=== PATIENT | male | born 1985 | race Caucasian/White ===

== ENCOUNTER 2019-10-04 22:23 | Emergency (ER) | payer OTHER ==
[~2019-10-04] VITALS: Ht 170.2 cm; Wt 67.1 kg
== END 2019-10-04 22:56 | disposition home or self-care (01) ==
LOC: ED 22:23
DX: K40.90 Unilateral inguinal hernia, without obstruction or gangrene, not specified as recurrent (principal); F17.200 Nicotine dependence, unspecified, uncomplicated
CPT/HCPCS: 99283

== ENCOUNTER 2023-12-10 18:08 | Inpatient (IN) | payer OTHER ==
[~2023-12-10] VITALS: Ht 170.2 cm; Wt 75.0 kg
[2023-12-10 20:19] LABS: HEMOGLOBIN 15.2 g/dL (12.0-18.0)
[2023-12-10 20:27] LABS: BILIRUBIN, URINE POSITIVE (negative); BLOOD/HGB, URINE NEGATIVE (Negative); KETONE, URINE SMALL (Negative); LEUK ESTERASE, URINE NEGATIVE (negative); NITRITE, URINE NEGATIVE (negative)
[2023-12-10 20:30] LABS: BASOPHILS 0.4 % (0-2); EOSINOPHILS 0.2 % (0-6); HEMATOCRIT 46.7 % (35.0-50.0); LYMPHOCYTES 6.1 % (24-44); MCHC 32.6 g/dl (30-36); MCV 85.9 fl (81-99); MONOCYTES 6.8 % (0-12); NEUTROPHILS 86.5 % (39-80); PLATELET COUNT 317 K/uL (140-440); RBC 5.44 M/ul (4.3-5.7); RDW 14.2 (10.5-15.0)
[2023-12-10 20:32] LABS: AMPHETAMINES, URINE POSITIVE (NEGATIVE); BARBITURATES, URINE NEGATIVE (NEGATIVE); BENZODIAZEPINE, URINE NEGATIVE (NEGATIVE); BUPRENORPHINE, URINE NEGATIVE (NEGATIVE); CANNABINOID, URINE POSITIVE (NEGATIVE); COCAINE, URINE NEGATIVE (NEGATIVE); ECSTASY, URINE POSITIVE (NEGATIVE); FENTANYL, URINE NEGATIVE (NEGATIVE); METHADONE, URINE NEGATIVE (NEGATIVE); OPIATES, URINE NEGATIVE (NEGATIVE); OXYCODONE, URINE NEGATIVE (NEGATIVE); PHENCYCLIDINE, URINE NEGATIVE (NEGATIVE)
[2023-12-10 20:37] LABS: ACETAMINOPHEN 0 ug/mL (10-30); ALBUMIN 4.7 g/dL (3.4-5.0); ALBUMIN/GLOBULIN RATIO 1.31 (1.1-2.4); ALCOHOL, MEDICAL <3 ng/dL (<3); ALKALINE PHOSPHATASE 83 U/L (46-116); ALT (SGPT) 52 U/L (14-59); ANION GAP 18.5 (7-21); AST (SGOT) 90 U/L (15-37); BILIRUBIN, TOTAL 1.1 ng/dL (0.2-1.0); BUN/CREATININE RATIO 14.22 (6.0-28.6); CALCIUM 8.9 mg/dL (8.5-10.1); CARBON DIOXIDE 22 mmol/L (21-32); CHLORIDE 96 mmol/L (98-107); CREATININE, SERUM 2.53 mg/dL (0.70-1.30); GLOMERULAR FILTRATION RATE,EST 32 mL/min (>60); POTASSIUM 4.5 mmol/L (3.5-5.1); PROTEIN, TOTAL 8.3 g/dL (6.4-8.2); SALICYLATE 1.8 mg/dL (2.8-20.0); TSH, 3RD GENERATION 0.749 uIU/mL (0.358-3.740); UREA NITROGEN 36 mg/dL (7-18)
[2023-12-11] MEDS ORDERED: SODIUM CHLORIDE 0.9% 1,000 ML IV PRN (07:00)
[2023-12-11 07:35] LABS: ANION GAP 14.1 (7-21); BUN/CREATININE RATIO 21.51 (6.0-28.6); CALCIUM 8.9 mg/dL (8.5-10.1); CREATININE, SERUM 1.72 mg/dL (0.70-1.30); POTASSIUM 4.1 mmol/L (3.5-5.1)
[2023-12-11] MEDS ORDERED: SODIUM CHLORIDE 0.9% 1,000 ML IV SCH (09:00)
[2023-12-11] MEDS ORDERED: ACETAMINOPHEN 325 MG TAB PO PRN (09:00)
[2023-12-11] MEDS ORDERED: ondansetron HCL 4 MG/2 ML VIAL IV PRN (09:00)
--- NOTE | 2023-12-11 09:10 | NUR ---
Spoke with Rogelio. He states he has recently returned to [place] from [place]. He has family here and in [place]. He is homeless at this time and has been living rough. He denies couch surfing. His main concern is his drug addiction. Pt is requesting placement to an IP A&D program. Pt was suicidal on admission and was placed on a hold by [facility]. Pt does not believe he has insurance. I will call eligibility to check if pt qualifies for OHP, check with the [facility] to see what [facility] for, and FU with Gerson from [facility].
--- NOTE | 2023-12-11 09:20 | NUR ---
CCS arrives as I am leaving pts room. We discussed plan. Asked if they want to attempt to place to rehab or if I should go through [facility]. He requests I use [facility]. He will evaluate and FU. Dov was with Gerson, and he will also call the [facility] service office to check for assistance.
[2023-12-11 09:25] VITALS: BP 132/92
--- NOTE | 2023-12-11 09:42 | NUR ---
PT TO MED-SURG VIA W/C. HE IS CALM AND COOPERATIVE. WARM BLANKET PROVIDED PT SITTING UP ON EDGE OF BED. CASE MANAGENT IN TO SEE HIM HE ANSWERS QUESTIONS APPROPRIATELY. KISHORE FROM [facility] IS HERE TO SPEAK WITH PT
--- NOTE | 2023-12-11 10:08 | NUR ---
PT TO THE SHOWER AFTER VISIT FROM [facility].
--- NOTE | 2023-12-11 10:16 | NUR ---
SHOWER WELL TOLERATED PT TO THE BED WITH WARM BLANKETS IV INFUSING PER ORDERS. PT AGREES HE IS COMFORTABLE FRESH H20 TO BEDSIDE DENIES NEEDS
--- NOTE | 2023-12-11 10:21 | NUR ---
SPOKE WITH [facility], [facility] WILL FORWARD message to peer so patient can be evaluated.
--- NOTE | 2023-12-11 11:12 | NUR ---
Patient takes no home meds
--- NOTE | 2023-12-11 11:18 | NUR ---
PT IS SLEEPING LAYING DOWN IN BED. CALL LIGHT IS WIHTIN REACH
--- NOTE | 2023-12-11 11:30 | NUR ---
Called and spoke with the [facility]. Pt is not service connected by does qualifify for mental health services. I received the phone number for the pt to call. [phone]. Fátima from called and spoke with [facility]. They will see this pt today. In and spoke with pt and updated. I gave him the number to call as they stated I could not speak for the pt, he must call them. Also let him know [facility] will see him for rehab placement.
--- NOTE | 2023-12-11 11:32 | NUR ---
PT CONTINUES TO REST EYES CLOSED AT THIS TIME.
[2023-12-11] MEDS ORDERED: PHARMACY RENAL DOSE ADJUSTMENT 1 DOSE MISC PO SCH (12:00)
--- NOTE | 2023-12-11 12:30 | NUR ---
Spoke with Zander from [facility]. He is [facility], but believes this pt has placement for tomorrow. Discussed I am waiting to hear from [facility] to check if pt has OHP and free medical transport. If so, pt could be transported to [place] through [facility] transport. Waiting to here from Eligibility.
--- NOTE | 2023-12-11 13:20 | NUR ---
WORKER IN TO VISIT WITH PT R/T PLACEMENT HAS EXTENDED VISIT OPTIONS DISCUSSED AT LENGTH. PT EATS MOST OF NOON MEAL RETURNS TO RESTING EYES CLOSED.
[2023-12-11 13:32] VITALS: BP 125/73
--- NOTE | 2023-12-11 13:35 | NUR ---
Notified Dr. Roseanna Falcon from [facility] had concerns about taking this pt. He requested a call from the Dr. Falcon had concerns about pts recent drug use, PTSD, if he can tolerate a program with multiple people. agrees to call him close to 3 pm.
--- NOTE | 2023-12-11 14:18 | NUR ---
VISITED DURING SPIRITUAL CARE ROUNDS. PT APPEARED TO BE SLEEPING. DID NOT DISTURB. PROVIDED PRAYER.
[2023-12-11 14:31] LABS: CALCIUM 7.9 mg/dL (8.5-10.1); CREATININE, SERUM 1.2 mg/dL (0.70-1.30)
--- NOTE | 2023-12-11 15:00 | NUR ---
called and discussed the concerns Ezekiel has. Ezekiel will call this pt later and let him know if he is accepted.
--- NOTE | 2023-12-11 15:03 | NUR ---
PT RESTING EYES CLOSED
--- NOTE | 2023-12-11 15:26 | NUR ---
FOCUSED ASSESSMENT COMPLETED. PT LABS ARE IMPROVED CK DOWN IV FLUIDS CONTINUE. PT CONTINUES TO BE COOPERATIVE. HAS EATEN WELL AND CONTINUES TO NAP. PT CONTINUES TO AGREE HE IS COMFORTABLE AT EACH ENCOUNTER DENIES PAIN OR ANY DISCOMFORTS. NO CHANGE IN DEMEANOR. NO REPORT OF VOICES OR OTHER DISTURBANCES. ARRANGEMENTS BEING MADE TO GET PT TO TREATMENT IS AGREEABLE TO THIS
--- NOTE | 2023-12-11 15:30 | NUR ---
Received call from Nick Mendosa at the [facility] for A&D. Gave an update for this pt. Per Nick they have beds open. We discussed this may be a better plan at this time. He will speak with his team and confirm opening for bed. I went and spoke with Rogeloi and he would [facility] at [facility] if they have beds. I call Lawarance from [facility] and he agrees this maybe best place at this time. Plan for future to go to a usp A&D program. Received a return call from Nick Mendosa and he request pt chart to be faxed to [phone] to [facility].
--- NOTE | 2023-12-11 16:38 | NUR ---
Spoke with Jennifer from the [facility] A&D program. She is the admission persons. Update given. I have just faxed the chart to GP Eugene as requested. She states she is getting the chart. They will reveiw. The cannot take an admission tomorro, but could on Mon. if this pt is accepted. She will call me tomorrow. [facility] Residential program Nick [phone], Jennifer Admissions [phone] .
--- NOTE | 2023-12-11 17:29 | NUR ---
PT CONTINUES RESTING EYES CLOSED AWAKENS TO VOICE. FRESH H20 TO BEDSIDE PO INTAKE ENCOURAGED
--- NOTE | 2023-12-11 18:25 | NUR ---
PT AWAKENED FOR EVEING MEAL. AGREES HE HAS SLEPT WELL, DENIES DISCOMFORTS.
[2023-12-11 18:43] VITALS: BP 123/73
[2023-12-11 20:45] LABS: ANION GAP 8.9 (7-21); BUN/CREATININE RATIO 22.32 (6.0-28.6); CALCIUM 7.5 mg/dL (8.5-10.1); CREATININE, SERUM 1.12 mg/dL (0.70-1.30); POTASSIUM 3.9 mmol/L (3.5-5.1)
[2023-12-11 21:05] VITALS: BP 116/74
--- NOTE | 2023-12-11 22:31 | NUR ---
Awakes easily, cooperative with assessment, denies s/s suicidal/homicidal ideation at this time, flat affect. On room air, clear lungs, stated LBM today, used urinal, . denies c/o pain . IVF infusing LAC
[2023-12-11 22:34] VITALS: BP 116/74
[2023-12-12] VITALS (10 sets, daily range): BP systolic 119–130; BP diastolic 75–93
--- NOTE | 2023-12-12 01:30 | NUR ---
AWAKES EASILY, NO C/O PAIN, DENIES VISUAL OR AUDITORY HALLUCINATION, WALI SELF HARM IDEATION, FRESH WATER GIVEN. IVF INFUSING
--- NOTE | 2023-12-12 04:48 | NUR ---
resting, awakes easily, IVF infusing, calm, quiet
[2023-12-12 05:34] LABS: EOSINOPHILS 2.2 % (0-6); HEMATOCRIT 36.5 % (35.0-50.0); HEMOGLOBIN 12.3 g/dL (12.0-18.0); LYMPHOCYTES 31.6 % (24-44); MCH 28.6 (27-36); MCHC 33.6 g/dl (30-36); MCV 85.2 fl (81-99); MONOCYTES 13.4 % (0-12); NEUTROPHILS 51.8 % (39-80); PLATELET COUNT 240 K/uL (140-440); RBC 4.29 M/ul (4.3-5.7); RDW 14.7 (10.5-15.0)
[2023-12-12 05:47] LABS: ALBUMIN 2.9 g/dL (3.4-5.0); ALBUMIN/GLOBULIN RATIO 1.07 (1.1-2.4); ANION GAP 11.4 (7-21); BILIRUBIN, TOTAL 0.2 ng/dL (0.2-1.0); BUN/CREATININE RATIO 19.56 (6.0-28.6); CALCIUM 7.3 mg/dL (8.5-10.1); CREATININE, SERUM 0.92 mg/dL (0.70-1.30); POTASSIUM 4.4 mmol/L (3.5-5.1); PROTEIN, TOTAL 5.6 g/dL (6.4-8.2)
--- NOTE | 2023-12-12 06:32 | NUR ---
RESTING, EYES CLOSED, AWAKENS EASILY, FLAT AFFECT, DENIES VISUAL, AUDITORY, AND SELF HARM IDEATION. COOPERATIVE.USED URINAL, TOLERATING LIQUIDS WELL. IVF INFUSING, SITE PATENT, NO S/SX WITHDRAWAL AT THIS TIME, ALERT AND ORIENTED. TURNS AND REPOSITIONS SELF IN BED
--- NOTE | 2023-12-12 07:23 | NUR ---
REPORT RECEIVED FROM RESTORATION OFFICER RN ERICK. PATIENT RESPONDING TO RN. RESPIRATIONS ARE EVEN AND UNLABORED. PATIENT URINAL DUMPED. PATIENT STATED NO NEEDS AT THIS TIME, CALL LIGHT AND PERSONAL BELONGINGS ARE WITHIN REACH.
--- NOTE | 2023-12-12 08:18 | NUR ---
Patient was [facility] about [facility] to the [facility]. Board has been uodated and call light has been placed within reach
--- NOTE | 2023-12-12 08:54 | NUR ---
NO MEDICATIONS DUE AT THIS TIME. FULL ASSESSMENT COMPLETE AND DOCUMENTED IN THE CHART. PATIENT IS ALERT AND ORIENTED TIMES FOUR. LUNG SOUNDS ARE CLEAR IN ALL LUNG WHITLOCK BILATERALLY AND THE PATIENT IS ON ROOM AIR. CARDIAC WITH NORMAL S1 AND S2 ON AUSCULTATION. BOWEL TONES ARE ACTIVE IN ALL FOUR QUADRANTS. PATIENT WITH NO COMPLAINTS OF PAIN OR NUMBNESS AND TINGLING AT THIS TIME. SENSATION INTACT. SKIN INTACT. SCABS PRESENT AND SCATTERED. SCATTERED TATOOS NOTED. REDENNED AREAS NOTED ON SEVERAL TOES. PATIENT IV SITE IN THE LAC FLUSHED WITH 10 ML NORMAL SALINE. IV FLUIDS ARE NS AT 200 ML/HR. IV FLUSHED WITH 10 ML NORMAL SALINE. PATIENT SAT UP IN BED AND IS EATING BREAKFAST AT THIS TIME. CALL LIGHT AND PERSONAL BELONGINGS ARE WITHIN REACH.
--- NOTE | 2023-12-12 10:44 | NUR ---
VISITED DURING SPIRITUAL CARE ROUNDS. PT APPEARED TO BE SLEEPING. DID NOT DISTURB. PROVIDED PRAYER.
--- NOTE | 2023-12-12 13:51 | NUR ---
PATIENT IS LYING IN BED. URINAL DUMPED OF 400 ML LIGHT YELLOW URINE. PATIENT WITH NO COMPLAINTS OF PAIN AT THIS TIME. IV SITE IN THE LAC IS CLEAN, DRY, AND INTACT. NS IS INFUSING AT 200 ML/HR. PATIENT IS ALERT AND ORIENTED TIMES FOUR. PATIENT WITH MODERATE SUICIDE RISK. THIS HAS NOT CHANGED SINCE THE LAST TIME. PATIENT STATED NO FURTHER NEEDS AT THIS TIME. CALL LIGHT AND PERSONAL BELONGINGS ARE WITHIN REACH.
--- NOTE | 2023-12-12 14:42 | NUR ---
UR CLINICAL REVIEW: [facility], STUP OBS 12/11/23 @ 0854, CHANGE TO INPATIENT STAUS 12/12/23 @ 2199 ALL ORDERS MATCH NO PA REQUIRED POSSIBLE DISCHARGE TO INPATIENT REHAB 12/13/23 12/14/23
--- NOTE | 2023-12-12 15:31 | NUR ---
PATIENT IS LYING IN BED WITH EYES CLOSED AND RESPIRATIONS ARE EVEN AND UNLABORED. PATIENT HAS NS INFUSING AT 200 ML/HR. CALL LIGHT AND PERSONAL BELONGINGS ARE WITHIN REACH.
--- NOTE | 2023-12-12 18:08 | NUR ---
PATIENT IS LYING IN BED AT THIS TIME. INOCENCIA IS IN THE ROOM AT THIS TIME. PATIENT STATED NO FURTHER NEEDS. CALL LIGHT AND PERSONAL BLEONGINGS ARE WITHIN REACH.
--- NOTE | 2023-12-12 18:35 | NUR ---
PATIENT IS LYING IN BED AND READING THE BIBLE. PATIENT IV IN THE LAC FLUSHED WITH 10 ML NORMAL SALINE. IV FLUIDS OF NS AT 200 ML/HR AT THIS TIME. PATIENT STATED NO FURTHER NEEDS AT THIS TIME. CALL LIGHT AND PERSONAL BELONGINGS ARE WITHIN REACH.
--- NOTE | 2023-12-12 19:12 | NUR ---
NEW BAG OF NS HANGING.
--- NOTE | 2023-12-12 19:55 | NUR ---
awakens easily, no c/o pain, denies visual or auditory hallucinatinos or self harm ideation. IVF infusing, no problems LAC. uses urinal. coop with assessment
--- NOTE | 2023-12-12 20:48 | NUR ---
IN ROOM TO COLLECT VS AND I&O'S FOR PRIMARY RN, VSS. pt GIVEN FRESH ICE WATER AND URINAL EMPTIED. pt REPORTS EAGERNES FOR AM DC AND FOR [facility]OUGH [facility]. IV SITE WNL, CALL LIGHT IN REACH. NEW BATTERIES ASLO PLACED TO TV REMOTE. pt LEFT AWAKE AND RESTING IN BED, ON RA. RR EVEN AND UNLABORED, NO DISTRESS NOTED.
[2023-12-12 22:14] LABS: ANION GAP 10.2 (7-21); BUN/CREATININE RATIO 15.18 (6.0-28.6); CALCIUM 7.7 mg/dL (8.5-10.1); CREATININE, SERUM 0.79 mg/dL (0.70-1.30); POTASSIUM 4.2 mmol/L (3.5-5.1)
--- NOTE | 2023-12-13 00:02 | NUR ---
IVF INFUSING, EYES CLOSED, NO S/SX WITHDRAWALS, CALM QUIET, POLITE, FLAT AFFECT, AWAKES EASILY, USED URINAL. AWARE THAT HE WILL BE DC IN AM, NO RESPONSE
[2023-12-13 05:47] VITALS: BP 136/98
[2023-12-13 05:51] VITALS: BP 136/98
--- NOTE | 2023-12-13 05:54 | NUR ---
HAS SLEPT THIS SHIFT. IV PULLED OUT ACCIDENTALLY THIS AM EARLIER. COOP WITH ASSESSMENTS AND VITALS. UP SHOWERING AT THIS TIME. NO C/O PAIN OR C/O AUDITORY OR VISUAL HALLUCINATIONS, DENIES SELF HARM BEHAVIOR
--- NOTE | 2023-12-13 06:07 | NUR ---
KITCHEN NOTIFIED OF NEEDING EARLY BREAKFAST AND SNACK PACK FOR PT HE IS BEING TRANSPORTED TO [facility]
--- NOTE | 2023-12-13 06:35 | NUR ---
PT DC TO [facility]RE[facility]. DC VIA W/C WITH ALL BELONGINGS AND DC PACKET. EARLY BREAKFAST EATEN AND SNACK GIVEN. PT ALERT AND ORIENTED, DENIED SELF HARM BEHAVIOR OR HALLUCINATIONS. PLEASANT AND COOPERATIVE. DC UNDER TRANSPORT SOLUTIONS CARE
== END 2023-12-13 06:45 | DRG 558 ==
LOC: ED 18:08 → MS 18:10
PROVIDERS: Internal Medicine; ADMIT Family Medicine; ATTEND Family Medicine
DX: M62.82 Rhabdomyolysis (principal); N17.9 Acute kidney failure, unspecified; R45.851 Suicidal ideations; R44.0 Auditory hallucinations; F43.10 Post-traumatic stress disorder, unspecified; F15.10 Other stimulant abuse, uncomplicated; F17.210 Nicotine dependence, cigarettes, uncomplicated; Z91.51 Personal history of suicidal behavior
CPT/HCPCS: 36415; 80048; 80053; 80307; 81003; 82553; 83036; 83735; 84100; 84443; 85025; 96360; 96361; 99285; G0378; G0480; J7030